=== PATIENT | female | born 1980 | race Caucasian/White ===

== ENCOUNTER 2018-12-03 12:19 | Emergency (ER) | payer OTHER ==
[~2018-12-03] VITALS: Ht 165.1 cm; Wt 74.8 kg
[2018-12-03 12:24] VITALS: BP 103/63
--- NOTE | 2018-12-03 12:24 | NUR ---
38 Y FEMALE PT C/O SUDDEN ONSET GENERALIZED WEAKNESS TODAY WHILE AT [employer]. PATIENT STATES SHE WAS WAITING FOR HER MEAL. STATES SHE HAS NOT ATE SINCE YESTERDAY. -N/V, + DIARRHEA X1 WEEK. DENIES BLURRY VISION, SOB, CP. 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 BED IS DOWN, LOCKED, BED RAIL X 1, ERMD TO SEE PT. MEDHX:DM, HYPOTHYROIDISM, SEIZURE RX:KEPPRA, INSULIN, DOPAMAX, LOMICTIL, SYNTHROID
--- NOTE | 2018-12-03 12:26 | NUR ---
ACCU CHECK 102
--- NOTE | 2018-12-03 12:44 | NUR ---
PT AMB TO BATHROOM WITH STEADY GAIT
--- NOTE | 2018-12-03 13:05 | NUR ---
REPORT GIVEN TO DENA RODRIGUES
--- NOTE | 2018-12-03 13:10 | NUR ---
RECEIVED REPORT FROM LIZANDRO RN, PT IN BED RESTING, VVS AT THIS TIME, WILL CONTINEU TO MONITOR CLOSELY.
[2018-12-03 13:38] LABS: BASOPHILS % (AUTO) 0.1 % (0.0-2.0); HEMOGLOBIN 9.8 g/dL (12.0-16.0); MEAN CORPUSCULAR HGB CONC 31 g/dL (33-37)
[2018-12-03 13:42] LABS: HEMATOCRIT 31.4 % (36-48); LYMPHOCYTES % (AUTO) 15.5 % (20.5-51.1); MEAN CORPUSCULAR HEMOGLOBIN 23 pg (27-31); MEAN CORPUSCULAR VOLUME 74.1 fL (80-94); MONOCYTES # (AUTO) 0.6 K/uL (0.8-1.0); MONOCYTES % (AUTO) 9.2 % (1.7-9.3); NEUTROPHILS # (AUTO) 5.1 K/uL (1.8-7.7); NEUTROPHILS % (AUTO) 75.2 % (42.2-75.2); PLATELET COUNT (AUTO) 344 K/uL (140-450); RED BLOOD CELL COUNT(AUTO) 4.24 MIL/uL (4.20-5.40); RED CELL DISTRIBUTION WIDTH 17.8 % (11.6-13.7); WHITE BLOOD COUNT (AUTO) 6.8 K/uL (4.8-10.8)
[2018-12-03 14:10] LABS: ALBUMIN 3.4 g/dL (3.4-5.0); ANION GAP 12.1 (8-16); CREATININE 0.8 mg/dL (0.6-1.3); POTASSIUM 3.1 mmol/L (3.5-5.1); TOTAL BILIRUBIN 0.2 mg/dL (0.0-1.0)
--- NOTE | 2018-12-03 14:18 | NUR ---
REPORTED BS OF [address] ROE WITH ORDER TO PROVIDE REGULAR DIET, PT ALSO GIVEN APPLE JUICE. PT VVS AT THIS TIME. WILL CONTINUE TO MONITOR CLOSELY.
[2018-12-03] MEDS ORDERED: DEXTROSE 10% 250 ML IV ONE (14:25)
--- NOTE | 2018-12-03 14:30 | NUR ---
PT PROVIDED REGULAR DIET TRAY AND APPLE JUICE AT THIS TIME.
[2018-12-03] MEDS ORDERED: DEXTROSE 10% 0 ML IV ONE (14:43)
--- NOTE | 2018-12-03 15:11 | NUR ---
ACCU CHECK 136, DENA RN NOTIFIED
[2018-12-03 15:42] LABS: APPEARANCE,URINE CLEAR (CLEAR); BILIRUBIN,URINE NEGATIVE (NEGATIVE); BLOOD, URINE NEGATIVE (NEGATIVE); COLOR,URINE YELLOW (YELLOW); LEUKOCYTE ESTERASE ,URINE 1+ (NEGATIVE); NITRITE, URINE NEGATIVE (NEGATIVE); UGLUCOSE TRACE (NEGATIVE)
[2018-12-03 15:45] VITALS: BP 124/57
--- NOTE | 2018-12-03 15:45 | NUR ---
Patient discharged with v/s stable. Written and verbal after care instructions given and explained. Patient verbalized understanding. Ambulatory with steady gait. All questions addressed prior to discharge. Advised to follow up with PMD.
[2018-12-03 16:01] LABS: RBC,URINE 0-5 /HPF (0-5)
== END 2018-12-03 15:45 | disposition home or self-care (01) ==
LOC: MED 12:19
DX: E11.649 Type 2 diabetes mellitus with hypoglycemia without coma (principal); Z86.69 Personal history of other diseases of the nervous system and sense organs; Z86.39 Personal history of other endocrine, nutritional and metabolic disease
CPT/HCPCS: 36415; 80053; 81001; 81025; 82948; 84443; 84484; 85025; 87086; 96365; 99283

== ENCOUNTER 2021-05-31 20:23 | Emergency (ER) | payer OTHER ==
[~2021-05-31] VITALS: Ht 165.1 cm; Wt 79.4 kg
[2021-05-31 20:25] VITALS: BP 138/89
--- NOTE | 2021-05-31 20:35 | NUR ---
SEEN AND EXAMINED BY KELI
[2021-05-31 23:32] LABS: BASOPHILS % (AUTO) 0.4 % (0.0-2.0); HEMOGLOBIN 10.5 g/dL (12.0-16.0); LYMPHOCYTES # (AUTO) 1.5 K/uL (2.5-16.5); LYMPHOCYTES % (AUTO) 21.7 % (20.5-51.1); MEAN CORPUSCULAR HEMOGLOBIN 24 pg (27-31); MEAN CORPUSCULAR HGB CONC 32 g/dL (33-37); MEAN CORPUSCULAR VOLUME 74.7 fL (80-94); MONOCYTES # (AUTO) 0.4 K/uL (0.8-1.0); MONOCYTES % (AUTO) 6.4 % (1.7-9.3); NEUTROPHILS # (AUTO) 4.9 K/uL (1.8-7.7); NEUTROPHILS % (AUTO) 71.5 % (42.2-75.2); PLATELET COUNT (AUTO) 402 K/uL (140-450); RED BLOOD CELL COUNT(AUTO) 4.41 MIL/uL (4.20-5.40); RED CELL DISTRIBUTION WIDTH 19.4 % (11.6-13.7); WHITE BLOOD COUNT (AUTO) 6.9 K/uL (4.8-10.8)
[2021-05-31 23:46] LABS: ALBUMIN 3.8 g/dL (3.4-5.0); ANION GAP 15.8 (8-16); CARBON DIOXIDE 22.7 mmol/L (21-32); CREATININE 0.8 mg/dL (0.6-1.3); POTASSIUM 4.5 mmol/L (3.5-5.1); TOTAL BILIRUBIN 0.3 mg/dL (0.0-1.0)
--- NOTE | 2021-06-01 00:15 | NUR ---
ALL RESULTS BACK AND NOTED BY ERMD AND FOR D/C
[2021-06-01 00:25] VITALS: BP 138/89
== END 2021-06-01 00:25 | disposition home or self-care (01) ==
LOC: MED 20:23
DX: R00.2 Palpitations (principal); E11.65 Type 2 diabetes mellitus with hyperglycemia; E07.9 Disorder of thyroid, unspecified
CPT/HCPCS: 36415; 71045; 80053; 84484; 85025; 93005; 99285